=== PATIENT | female | born 1945 | race Caucasian/White ===

== ENCOUNTER 2023-07-31 14:35 | Emergency (ER) | payer MEDICARE, SELFPAY ==
--- NOTE | ~2023-07-31 | CT_ITS ---
EXAMINATION: CT abdomen pelvis w con DATE: 07/31/2023 16:37 INDICATION: Left lower quadrant abdominal pain and diarrhea. TECHNIQUE: Computed tomography (CT) of the abdomen and pelvis was performed with 100 mL Omnipaque-350 intravenous contrast. Automated exposure control and iterative reconstruction technique were employe d. The dose-length product was 1331.57 mGy-cm. COMPARISON: None FINDINGS: Lung bases are clear. Heart size is normal. No pericardial or pleural effusion. Focal hepatic steatos is at the ligamentum teres. Cholecystectomy clips at the gallbladder fossa. Spleen, pancreas, bilater al adrenal glands and kidneys are normal. There is prominent descending and sigmoid colon predominant diverticulosis without adjacent inflammatory change to suggest diverticulitis. The appendix is not v isualized. No pericecal inflammatory change to suggest acute appendicitis. No abnormal bowel wall thi ckening or obstruction. Bladder is normal. The uterus is not identified and has likely been surgicall y resected. No free intraperitoneal gas or fluid. No pathologically enlarged abdominal or pelvic lymp hadenopathy. Lumbar levoscoliosis with mild to moderate lumbar and moderate lower thoracic spondylosi s.. IMPRESSION: 1. Diverticulosis. No evident acute intra-abdominal/pelvic process. Reviewed, dictated and finalized at location A.
[2023-07-31 14:50] VITALS: BP 152/70; PULSE 67; RESP 18; TEMP 36.5; O2SAT 98
--- NOTE | 2023-07-31 15:41 | ED.GENADULT ---
HPI - General Adult General Chief complaint: Nausea/Vomiting/Diarrhea <STEPHANIE Sy Last Filed: 07/31/23 16:01> Stated complaint: diarrhea <STEPHANIE Sy Last Filed: 07/31/23 16:01> Time Seen by Provider: 07/31/23 17:13 <STEPHANIE Sy Last Filed: 07/31/23 16:01> Source: patient <STEPHANIE Sy Last Filed: 07/31/23 16:01> Mode of arrival: ambulatory <STEPHANIE Sy Filed: 07/31/23 16:01> Limitations: no limitations <STEPHANIE Sy Filed: 07/31/23 16:01> History of Present Illness HPI narrative: Patient is a 77 y/o female, with pmh diverticulitis/diverticulosis, DM, who presents to the ED with c/o diarrhea. Patient reports having watery diarrhea for the past 1 week. She reports several episodes a day. She complains of lower abdominal cramping just before she is about to have a bowel movement, though otherwise denies significant abdominal pain. She called her primary care doctor today and was referred here. Denies rectal bleeding, melena, nausea, vomiting, fevers, foreign travel, recent abx. Patient is currently on Ozempic for her diabetes. She states she ran out of her prescription dose and was given samples from the pharmacy a couple weeks ago prior to when the diarrhea began. <STEPHANIE Sy Last Filed: 07/31/23 16:01> Related Data Home medications: Home Medications Medication Instructions Recorded Confirmed albuterol sulfate 90 mcg/actuation 1 puff inhalation Q6H PRN 06/26/22 06/25/23 aerosol inhaler aspirin 81 mg tablet,delayed 81 mg PO DAILY 06/26/22 06/25/23 release flash glucose sensor (FreeStyle 06/26/22 06/25/23 Isamar 2 Sensor kit) propranolol 80 mg capsule,24 80 mg PO DAILY 06/26/22 06/25/23 hr,extended release cholecalciferol (vitamin D3) 50 50 mcg PO DAILY 10/23/22 06/25/23 mcg (2,000 unit) capsule estradiol 0.5 mg tablet 0.5 mg PO DAILY 02/27/23 06/25/23 glucagon 3 mg/actuation nasal spray 3 mg intranasal ONCE PRN 02/27/23 06/25/23 prenat.vits,lacie,uyr-pvgt-wepwp 1 tablet PO DAILY 02/27/23 06/25/23 lisinopril 20 mg tablet 10 mg PO DAILY 05/09/23 06/25/23 <Tosha Paniagua PA-C - Last Filed: 07/31/23 16:01> Allergies/adverse reactions: Allergies Allergy/AdvReac Type Severity Reaction Status Date / Time adhesive Allergy Unknown Unknown Verified 06/25/23 13:57 ibuprofen Allergy Unknown Unknown Verified 06/25/23 13:57 iodine Allergy Unknown Unknown Verified 06/25/23 13:57 ketoprofen Allergy Unknown Unknown Verified 06/25/23 13:57 latex Allergy Unknown Unknown Verified 06/25/23 13:57 peanut Allergy Unknown Unknown Verified 06/25/23 13:57 Penicillins Allergy Unknown Unknown Verified 06/25/23 13:57 lactose AdvReac Mild Diarrhea Verified 06/25/23 13:57 donepezil Hcl Allergy Unknown Unknown Uncoded 06/25/23 13:57 <Tosha Paniagua PA-C - Last Filed: 07/31/23 16:01> Review of Systems Review of Systems: CONSTITUTIONAL: Denies fever, chills, or sweats. GASTROINTESTINAL: See HPI. MUSCULOSKELETAL: Denies back pain, joint pain, or myalgia. <Tosha Paniagua PA-C - Last Filed: 07/31/23 16:01> All systems reviewed & are unremarkable except as noted in HPI and below <Tosha Paniagua PA-C - Last Filed: 07/31/23 16:01> [facility] Past Medical History Medical History: Medical History Allergies Anemia Asthma B12 deficiency BMI 40.0-44.9, adult BMI 45.0-49.9, adult Diabetes mellitus Encounter to establish care GERD (gastroesophageal reflux disease) Headache Hyperlipidemia Hypertension Irregular heart rate Kidney disease Muscle cramps Peripheral neuropathy Rash and nonspecific skin eruption Squamous cell carcinoma in situ Stage 3 chronic kidney disease <Tosha Paniagua PA-C - Last Filed: 07/31/23 16:01> Surgical History Surgical History:
[2023-07-31 16:09] LABS: Basophils Absolute Auto 0.1 K/mm3 (0.0-0.1); Basophils Percent Auto 0.5 % (0.2-1.2); Eosinophils Absolute Auto 0.2 K/mm3 (0-0.3); Eosinophils Percent Auto 2.1 % (0-4.4); Hematocrit 45.6 % (37.0-47.0); Hemoglobin 14.2 g/dL (12.0-15.0); Immature Granulocyte Absolute 0.02 K/mm3 (0.00-0.031); Immature Granulocyte Percent A 0.2 % (0-0.5); Lymphocytes Absolute Auto 1.99 K/mm3 (0.9-3.2); Lymphocytes Percent Auto 21.7 % (18.3-44.2); Mean Corpuscular HGB Conc 31.1 g/dl (32-36); Mean Corpuscular Hemoglobin 30.3 pg (26-34); Mean Corpuscular Volume 97.2 fl (80-100); Monocytes Absolute Auto 0.7 K/mm3 (0.1-0.6); Monocytes Percent Auto 7.4 % (2.6-8.5); Neutrophils Absolute Auto 6.3 K/mm3 (1.3-6.7); Neutrophils Percent Auto 68.1 % (45.5-73.1); Platelet Count Result 265 k/mm3 (150-375); Red Blood Count 4.69 M/mm3 (4.2-5.4); Red Cell Distribution Width 14.6 % (11.5-14.5); White Blood Count 9.2 K/mm3 (4.5-10.0)
[2023-07-31 16:21] LABS: Alanine Aminotransferase 17 U/L (6-35); Albumin Level 4.4 g/dL (3.5-5.1); Alkaline Phosphatase 60 U/L (38-126); Anion Gap 7 mmol/L (8-16); Aspartate Amino Transferase 24 U/L (14-36); Blood Urea Nitrogen 8 mg/dL (7-17); Calcium 9.4 mg/dL (8.4-10.2); Carbon Dioxide 30 mmol/L (22-30); Chloride 98 mmol/L (98-107); Estimated CRCL calculation 55 ml/min; Estimated Glomerular Filt Rate > 60; Glucose 114 mg/dL (65-110); Lipase 92 U/L (23-300); Potassium 4.1 mmol/L (3.4-5.0); Sodium 135 mmol/L (137-145)
[2023-07-31 16:40] LABS: Appearance Urine Clear (Clear); Bacteria Urine None Seen /hpf; Bilirubin Urine Negative (Negative); Color Urine Yellow (Yellow); Glucose Urine UA Negative (Negative); Ketones Urine Negative (Negative); Leukocyte Esterase Ur Negative LEU/UL (Negative); Nitrate Urine Negative (Negative); Non Pathogenic Casts 0-2; Protein Urine Negative (Negative); RBC Urine 0-2 /hpf (0-2); Specific Grav Ur 1.007 (1.001-1.035); Squamous Epithelial Cell Urine None seen /hpf (Few); Urobilinogen Urine 0.2 mg/dL (<2.0); WBC Urine 0-5 /hpf; pH Urine 6.5 (5.0-9.0)
[2023-07-31 16:41] LABS: Add Urine Microscopic? YES
[2023-07-31 18:38] VITALS: BP 141/78; PULSE 58; RESP 15; O2SAT 100
== END 2023-07-31 18:39 | disposition home or self-care (01) ==
PROVIDERS: Emergency Medicine; Emergency Provider Physician Assistant; PCP Family Medicine
DX: R10.9 Unspecified abdominal pain (principal); E78.5 Hyperlipidemia, unspecified; I12.9 Hypertensive chronic kidney disease with stage 1 through stage 4 chronic kidney disease, or unspecified chronic kidney disease; N18.30 Chronic kidney disease, stage 3 unspecified
CPT/HCPCS: 36415; 74177; 80053; 81001; 83690; 85025; 99284; Q9967

== ENCOUNTER 2023-08-07 16:15 | Outpatient (CLI) | payer MEDICARE, OTHER, SELFPAY ==
[2023-08-07 18:02] LABS: CRP 0.7 mg/dL (<1.0)
== END 2023-08-07 16:16 | disposition home or self-care (01) ==
PROVIDERS: PCP Family Medicine; Visit Provider Internal Medicine Gastroenterology
DX: R19.7 Diarrhea, unspecified (principal)
CPT/HCPCS: 36415; 86140

== ENCOUNTER 2023-08-09 14:52 | Outpatient (NON) | payer MEDICARE, OTHER, SELFPAY ==
[2023-08-15 17:53] LABS: Calprotectin, Stool 58 mcg/g
== END 2023-08-09 14:53 | disposition home or self-care (01) ==
LOC: ANHLAB 14:53
PROVIDERS: PCP Family Medicine; Visit Provider Internal Medicine Gastroenterology
DX: R19.7 Diarrhea, unspecified (principal)
CPT/HCPCS: 83993; 89055

== ENCOUNTER 2024-03-05 11:02 | Emergency (ER) | payer MEDICARE, SELFPAY ==
--- NOTE | ~2024-03-05 | XR_ITS ---
XR elbow RT min 3V 03/05/2024 11:34 INDICATION: Right elbow pain PROCEDURE: 4 views right elbow COMPARISON: No prior studies for comparison. FINDINGS: Fracture, dislocation or subluxation is not identified. No significant joint effusion. The soft tissues appear within normal limits. No foreign bodies are identified. IMPRESSION: 1: NO ACUTE BONE OR JOINT ABNORMALITY IDENTIFIED. Reviewed, dictated and finalized at location B.
--- NOTE | 2024-03-05 11:10 | ED.UPPEXIN ---
HPI - Extremity Injury (Upper) General Chief Complaint: Extremity Injury, Upper Stated Complaint: rt upper extremity injury Time Seen by Provider: 03/05/24 11:10 Source: patient Mode of arrival: ambulatory Limitations: no limitations History of Present Illness HPI narrative: Patient is a 78-year-old female that presents with right elbow pain after falling February 24 from tripping on the carpet and landing directly on her elbow. Patient has not been seen for injury. Patient states pain has been constant. Denies any numbness, tingling or weakness to distal portion of arm. Related Data Home Medications Medication Instructions Recorded Confirmed albuterol sulfate 90 mcg/actuation 1 puff inhalation Q6H PRN asthma 06/26/22 03/05/24 aerosol inhaler aspirin 81 mg tablet,delayed 81 mg PO DAILY 06/26/22 03/05/24 release flash glucose sensor (FreeStyle 06/26/22 03/05/24 Isamar 2 Sensor kit) propranolol 80 mg capsule,24 80 mg PO DAILY 06/26/22 03/05/24 hr,extended release cholecalciferol (vitamin D3) 50 50 mcg PO DAILY 10/23/22 03/05/24 mcg (2,000 unit) capsule prenat.vits,lacie,oyi-nnhy-eijce 1 tablet PO DAILY 02/27/23 03/05/24 lisinopril 20 mg tablet 10 mg PO DAILY 05/09/23 03/05/24 conjugated estrogens 0.625 mg 0.625 mg PO DAILY 11/06/23 03/05/24 tablet (Premarin) Allergies Allergy/AdvReac Type Severity Reaction Status Date / Time peanut Allergy Severe Anaphylaxis Verified 03/05/24 11:30 Penicillins Allergy Severe Anaphylaxis Verified 03/05/24 11:30 ibuprofen AdvReac Intermediate Gastrointestinal Verified 03/05/24 11:31 Upset iodine AdvReac Intermediate Gastrointestinal Verified 03/05/24 11:31 Upset ketoprofen AdvReac Intermediate Gastrointestinal Verified 03/05/24 11:31 Upset lactose AdvReac Intermediate Gastrointestinal Verified 03/05/24 11:53 Upset adhesive AdvReac Mild Hives Verified 03/05/24 11:30 latex AdvReac Mild Hives Verified 03/05/24 11:30 donepezil Hcl AdvReac Mild Hives Uncoded 03/05/24 11:30 Review of Systems Review of Systems: All systems reviewed & are unremarkable except as noted in HPI and below Constitutional: Constitutional: Denies body ache(s), Denies chills, Denies fatigue, Denies fever(s), Denies headache(s), Denies malaise and Denies weakness Eyes: Eyes: Denies blurry vision, Denies irritation and Denies loss of vision ENT: Denies otalgia, Denies headache(s), Denies nasal discharge, Denies sinus pain and Denies sore throat Cardiovascular: Cardiovascular: Denies chest pain, Denies irregular heart rhythm and Denies dyspnea Respiratory: Respiratory: Denies dyspnea Gastrointestinal: Gastrointestinal: Denies abdominal pain, Denies melena, Denies hematochezia, Denies diarrhea, Denies nausea and Denies vomiting Musculoskeletal: Musculoskeletal: Denies back pain, Denies myalgias and Reports arthralgias Integumentary/Breasts: Skin/Breast: Denies pruritus and Denies rash Neurologic: Denies headache(s), Denies loss of vision and Denies weakness Psychiatric: Psychiatric: Reports no additional psychiatric complaints Endocrine: Endocrine: Denies fatigue PMFSH Past Medical History Medical History Allergies Anemia Asthma B12 deficiency BMI 40.0-44.9, adult BMI 45.0-49.9, adult Diabetes mellitus Encounter to establish care GERD (gastroesophageal reflux disease) Headache Hyperlipidemia Hypertension Irregular heart rate Kidney disease Muscle cramps Peripheral neuropathy Rash and nonspecific skin eruption Squamous cell carcinoma in situ Stage 3 chronic kidney disease Surgical History Surgical History H/O: hysterectomy History of bladder suspension procedure History of cataract surgery History of surgery on arm 02/21/23, mass in right arm, benign Hx of appendectomy Hx of cholecystectomy Family History Family History (Reviewed 03/05/24 @ 11:44 by Carlos
[2024-03-05 11:24] VITALS: BP 140/66; PULSE 62; RESP 16; TEMP 36.3; O2SAT 100
== END 2024-03-05 11:54 | disposition home or self-care (01) ==
PROVIDERS: Emergency Provider Nurse Practitioner Family; PCP Nurse Practitioner Family
DX: M25.521 Pain in right elbow (principal); W22.8XXA Striking against or struck by other objects, initial encounter; K21.9 Gastro-esophageal reflux disease without esophagitis; I12.9 Hypertensive chronic kidney disease with stage 1 through stage 4 chronic kidney disease, or unspecified chronic kidney disease; E11.22 Type 2 diabetes mellitus with diabetic chronic kidney disease; N18.30 Chronic kidney disease, stage 3 unspecified; Z86.008 Personal history of in-situ neoplasm of other site; E11.42 Type 2 diabetes mellitus with diabetic polyneuropathy; E78.5 Hyperlipidemia, unspecified; Z79.82 Long term (current) use of aspirin
CPT/HCPCS: 73080; 99213; G0463

== ENCOUNTER 2024-06-05 13:18 | Outpatient (CLI) | payer MEDICARE, SELFPAY ==
--- NOTE | 2024-06-05 13:32 | ECG_ITS ---
Test Date: 2024-06-05 13:53:54 Measurements Intervals [place] Rate: 70 P: 9 TN: 176 QRS: -30 QRSD: 103 T: -3 QT: 390 QTc: 423 Interpretive Statements SINUS RHYTHM LOW QRS VOLTAGE IN PRECORDIAL LEADS POOR R WAVE PROGRESSION BORDERLINE T WAVE ABNORMALITY- ANT/INF LEADS BASELINE ARTIFACT- I, II, III, AVR, AVL, AVF, V3 BORDERLINE ECG No previous ECG available for comparison Electronically Signed On 06-05-2024 14:10:38 CDT by Bairon Roberts D.O.
[2024-06-05 14:25] LABS: Prothrombin Time 13.2 Seconds (11.1-14.7)
[2024-06-05 14:26] LABS: Partial Thromboplastin Time 29.9 Seconds (22.3-36.8)
[2024-06-05 14:31] LABS: Anion Gap 9 mmol/L (4-12); Blood Urea Nitrogen 12 mg/dL (7-17); Calcium 8.9 mg/dL (8.4-10.2); Carbon Dioxide 28 mmol/L (22-30); Chloride 100 mmol/L (98-107); Estimated Glomerular Filt Rate 48; Glucose 96 mg/dL (65-110); Potassium 4.5 mmol/L (3.4-5.0); Sodium 137 mmol/L (137-145)
== END 2024-06-05 13:19 | disposition home or self-care (01) ==
PROVIDERS: Anesthesiology; PCP Nurse Practitioner Family; Visit Provider Dentist
DX: Z01.818 Encounter for other preprocedural examination (principal); I12.9 Hypertensive chronic kidney disease with stage 1 through stage 4 chronic kidney disease, or unspecified chronic kidney disease; N18.2 Chronic kidney disease, stage 2 (mild)
CPT/HCPCS: 36415; 80048; 85610; 85730; 93005

== ENCOUNTER 2024-06-11 01:24 | Day surgery (SDC) | payer OTHER, SELFPAY ==
--- NOTE | 2024-06-04 14:36 | PC.NURSE ---
Report to the Outpatient Waiting Room, entrance under the green pavilion located off [facility], at time _0730__ on date 06/11/24_. Planned Procedure Time: _09 __.? Time changes happen often and if your time is changed the preop area will call you the afternoon before. - You and your visitor will be asked to self-screen and do not enter if you have any COVID symptoms. Please call surgeon if you need to reschedule. - A mask is optional within the hospital at this time. Patients may have clear liquids (water, carbonated beverages, clear teas, apple juice) until 3 hours prior to surgery with a maximum of 20 ounces. - No food from midnight until time of surgery and no smoking - Infants may have breast milk until 4 hours before surgery, formula 6 hours prior to surgery. - Children will be allowed to drink immediately following surgery.? If applicable, please bring a bottle or sippy cup to assist with drinking. Juice, water, soda, and popsicles are readily available.? For infants on formula, please bring formula the day of surgery.? Pacifiers are allowed. Take only the following medications with a SIP of water on the morning of surgery: DULOXITINE, INHALER IF NEEDED DO NOT STOP ANY OF YOUR OTHER PRESCRIPTION MEDICATIONS PRIOR TO SURGERY EXCEPT THE FOLLOWING Medications to discontinue per physician ____VITAMINS/SUPPLIMENTS Date to take last dose 06/08/24 OK TO CONTINUE ASPIRIN UP UNTIL SURGERY DAY Please no make-up, nail israeli, hairspray, perfume, deodorant, or body powder the day of surgery.? No jewelry (including any body piercings) or valuables the day of surgery, leave them at home.? Please take a shower or bath the night before, or the morning of, surgery with an antibacterial soap.? Wear comfortable, loose fitting clothing.? Children are encouraged to wear pajamas. - Jewelry must be removed prior to entering the operating room.? Rings and piercings that are not removed may be cut off. - The hospital will not accept responsibility for valuables.? - Please leave all valuables, including medications, at home the day of surgery. If you are going home after surgery, a licensed van driver helper must drive you home.? - NO public transportation without another adult if you receive anesthesia. - We recommend that an adult stay with you for 24 hours following discharge. - We also recommend that you do not drive, make important decision, drink alcoholic beverages, or take any drugs that were not prescribed by your health care provider for at least 24 hours after your discharge time. For Pediatric surgeries, we recommend two adults accompany the child home. Follow any additional instructions given to you from your surgeon. Telephone instructions given to _PATIENT/S.O._and asked if any additional questions and then verbalized understanding. Patient advised to call surgeon office or pre surgery nurse liaison [phone] if any additional questions.
[2024-06-11] VITALS (9 sets, daily range): BP systolic 144–181; BP diastolic 62–75; PULSE 64–73; RESP 13–18; TEMP 36.4–36.6; O2SAT 96–100; BMI 42.0
[2024-06-11] MEDS: LACTATED RINGERS 1,000 ML 30 ML IV CONT ×2 (08:15→11:03)
[2024-06-11 08:18] LABS: Glucose Point of Care 111 mg/dl (65-105)
--- NOTE | 2024-06-11 08:30 | WPDHPUPDATE1 ---
History and Physical Update Update Date/Time: 06/11/24 08:30 History and Physical has been reviewed, including an updated exam of the patient. There are NO changes in the patient's condition. Risks, benefits, and alternatives have been discussed and questions answered. Patient agrees to proceed with procedure.
--- NOTE | 2024-06-11 08:31 | PM.IMHP ---
H&P: HPI History of Present Illness Date/Time: 06/11/24 08:31 Chief Complaint: bad teeth PMFSH Past Medical History Medical History (Updated 06/11/24 @ 08:32 by Blaine Alarcon DMD) Allergies Anemia Asthma B12 deficiency BMI 40.0-44.9, adult BMI 45.0-49.9, adult Diabetes mellitus Encounter to establish care Gait disturbance GERD (gastroesophageal reflux disease) Headache Hyperlipidemia Hypertension Irregular heart rate Kidney disease Mitral valve regurgitation Muscle cramps Otitis media, left Peripheral neuropathy Rash and nonspecific skin eruption Squamous cell carcinoma in situ Stage 3 chronic kidney disease Surgical History Surgical History H/O: hysterectomy History of bladder suspension procedure History of cataract surgery History of surgery on arm 02/21/23, mass in right arm, benign Hx of appendectomy Hx of cholecystectomy Family History Family History Father Lymph node cancer Mother Hypertension Heart disease Sibling Colon cancer Other Colon cancer Grandparent Diabetes mellitus Heart disease Social History Social History Smoking status: Never smoker Alcohol intake: never Substance use: never Do You Feel Safe in your Home?: Yes Lack of Transportation: No Lack of Food: Never True Current Housing: I Have Housing Concerned About Future Housing: No Difficulty Paying Gas/Electric Bills: No Difficulty Paying for Meds: No Currently Unemployed: No Education: Associate Degree Difficulty w/ Childcare or Family Care: No Living arrangements: with family Gender identity (if verbalized by the patient): Female Meds Home Medications and Allergies Home Medications Medication Instructions Recorded Confirmed Type albuterol sulfate 90 mcg/actuation 1 puff inhalation Q6H PRN asthma 06/26/22 06/11/24 History aerosol inhaler aspirin 81 mg tablet,delayed 81 mg PO DAILY 06/26/22 06/11/24 History release flash glucose scanning reader #1 ea 06/26/22 06/11/24 Rx (FreeStyle Isamar 2 [place]) flash glucose sensor (FreeStyle 06/26/22 06/11/24 History Isamar 2 Sensor kit) propranolol 80 mg capsule,24 80 mg PO DAILY 06/26/22 06/11/24 History hr,extended release cholecalciferol (vitamin D3) 50 50 mcg PO DAILY 10/23/22 06/11/24 History mcg (2,000 unit) capsule cyanocobalamin (vitamin B-12) 1,000 mcg IM .twice a month #6 mL 01/10/23 06/11/24 Rx 1,000 mcg/mL injection solution prenat.vits,lacie,fiv-snjs-dbnwo 1 tablet PO DAILY 02/27/23 06/11/24 History fluticasone propionate 50 1 spray intranasal BID #16 grams 05/09/23 06/11/24 Rx mcg/actuation nasal spray,suspension gabapentin 300 mg capsule 300 mg PO QHS #90 caps 09/12/23 06/11/24 Rx lovastatin 20 mg tablet 20 mg PO DAILY #90 tabs 10/02/23 06/11/24 Rx folic acid 1 mg tablet 1 mg PO .qod #45 tabs 10/09/23 06/11/24 Rx duloxetine 30 mg capsule,delayed 30 mg PO DAILY #90 caps 10/30/23 06/11/24 Rx release conjugated estrogens 0.625 mg 0.625 mg PO DAILY 11/06/23 06/11/24 History tablet (Premarin) tizanidine 4 mg tablet 4 mg PO QHS PRN muscle spasticity 12/24/23 06/11/24 Rx #90 tabs famotidine 20 mg tablet (Acid 20 mg PO DAILY #90 tabs 01/02/24 06/11/24 Rx Boot [employer] Saddle Repair Person (famotidine)) semaglutide 2 mg/dose (8 mg/3 mL) 2 mg (0.75 mL) subcut WEEKLY 90 01/02/24 06/11/24 Rx subcutaneous pen injector days #9 mL dicyclomine 10 mg capsule 10 mg PO TID #90 caps 04/28/24 06/11/24 Rx loperamide 2 mg capsule 2 mg PO Q6H PRN loose stool #60 04/28/24 06/11/24 Rx (Anti-Diarrheal (loperamide)) caps empagliflozin 10 mg tablet 10 mg PO DAILY #90 tabs 05/07/24 06/11/24 Rx (Jardiance) ropinirole 1 mg tablet 1 mg PO QHS #90 tabs 05/12/24 06/11/24 Rx doxycycline hyclate 100 mg tablet 100 mg PO BID #14 tabs 06/04/24 06/11/24 Rx lisinopril 20 mg tabl
--- NOTE | 2024-06-11 09:22 | WPDANESEPPF ---
Anes - Initial Pre Proc Eval Procedure: Operation Date: 06/11/24 09:30 Proposed Procedures p Extraction of Nine Teeth - Blaine Alarcon DMD Date/Time: 06/11/24 09:22 Surgeon: Blaine Alarcon DMD Pre Op Diagnosis: Dental Caries - Patient Data Age: 78 Gender: F Height: 1.6 m Weight: 107.7 kg Last Vital Signs Temp 36.4 C 06/11/24 07:55 Pulse 64 06/11/24 07:55 Resp 18 06/11/24 07:55 BP 181/72 H 06/11/24 07:55 Pulse Ox 100 06/11/24 07:55 O2 Del Method Room Air 06/11/24 07:55 Allergies Allergy/AdvReac Type Severity Reaction Status Date / Time peanut Allergy Severe Anaphylaxis Verified 06/11/24 07:56 Penicillins Allergy Severe Anaphylaxis Verified 06/11/24 07:56 ibuprofen AdvReac Intermediate Gastrointestinal Verified 06/11/24 07:56 Upset iodine AdvReac Intermediate Gastrointestinal Verified 06/11/24 07:56 Upset ketoprofen AdvReac Intermediate Gastrointestinal Verified 06/11/24 07:56 Upset adhesive AdvReac Mild Hives Verified 06/11/24 07:56 latex AdvReac Mild Hives Verified 06/11/24 07:56 donepezil Hcl AdvReac Mild Hives Uncoded 06/11/24 07:56 Home Medications Medication Instructions Recorded Confirmed Type albuterol sulfate 90 mcg/actuation 1 puff inhalation Q6H PRN asthma 06/26/22 06/11/24 History aerosol inhaler aspirin 81 mg tablet,delayed 81 mg PO DAILY 06/26/22 06/11/24 History release flash glucose scanning reader #1 ea 06/26/22 06/11/24 Rx (FreeStyle Isamar 2 [place]) flash glucose sensor (FreeStyle 06/26/22 06/11/24 History Isamar 2 Sensor kit) propranolol 80 mg capsule,24 80 mg PO DAILY 06/26/22 06/11/24 History hr,extended release cholecalciferol (vitamin D3) 50 50 mcg PO DAILY 10/23/22 06/11/24 History mcg (2,000 unit) capsule cyanocobalamin (vitamin B-12) 1,000 mcg IM .twice a month #6 mL 01/10/23 06/11/24 Rx 1,000 mcg/mL injection solution prenat.vits,lacie,vmg-niou-gagbm 1 tablet PO DAILY 02/27/23 06/11/24 History fluticasone propionate 50 1 spray intranasal BID #16 grams 05/09/23 06/11/24 Rx mcg/actuation nasal spray,suspension gabapentin 300 mg capsule 300 mg PO QHS #90 caps 09/12/23 06/11/24 Rx lovastatin 20 mg tablet 20 mg PO DAILY #90 tabs 10/02/23 06/11/24 Rx folic acid 1 mg tablet 1 mg PO .qod #45 tabs 10/09/23 06/11/24 Rx duloxetine 30 mg capsule,delayed 30 mg PO DAILY #90 caps 10/30/23 06/11/24 Rx release conjugated estrogens 0.625 mg 0.625 mg PO DAILY 11/06/23 06/11/24 History tablet (Premarin) tizanidine 4 mg tablet 4 mg PO QHS PRN muscle spasticity 12/24/23 06/11/24 Rx #90 tabs famotidine 20 mg tablet (Acid 20 mg PO DAILY #90 tabs 01/02/24 06/11/24 Rx Information Technology Auditor (famotidine)) semaglutide 2 mg/dose (8 mg/3 mL) 2 mg (0.75 mL) subcut WEEKLY 90 01/02/24 06/11/24 Rx subcutaneous pen injector days #9 mL dicyclomine 10 mg capsule 10 mg PO TID #90 caps 04/28/24 06/11/24 Rx loperamide 2 mg capsule 2 mg PO Q6H PRN loose stool #60 04/28/24 06/11/24 Rx (Anti-Diarrheal (loperamide)) caps empagliflozin 10 mg tablet 10 mg PO DAILY #90 tabs 05/07/24 06/11/24 Rx (Jardiance) ropinirole 1 mg tablet 1 mg PO QHS #90 tabs 05/12/24 06/11/24 Rx doxycycline hyclate 100 mg tablet 100 mg PO BID #14 tabs 06/04/24 06/11/24 Rx lisinopril 20 mg tablet 20 mg PO DAILY #90 tabs 06/04/24 06/11/24 Rx Laboratory Tests 06/11/24 08:14 POC Capillary Glucose 111 H mg/dl (65-105) Patient hx anesthesia problems: none Family hx anesthesia problems: none Results Review: All pre-operative results and documents have been reviewed as part of the pre-operative evaluation. [facility] Past Medical History Medical History Allergies Anemia Asthma B12 deficiency BMI 40.0-44.9, adult BMI 45.0-49.9, adult Diabetes mellitus Encounter to establish care Gait disturbance GERD (gastroesophageal reflux disease) Headache Hyperlipidemia Hypertension Irregular heart r
[2024-06-11] MEDS: OXYMETAZOLINE HCL 0.05% NAS 15 ML BTL (*BKC) 1 SPRAY NASAL (10:35)
[2024-06-11] MEDS: LIDOCAINE 2%-EPI (FOR DENTAL BLOCK) 1.7 ML CARTRIDGE 6.8 ML INFILTRATE (10:38)
--- NOTE | 2024-06-11 11:00 | P.OP_ITS ---
Procedure Note - Detailed Date of Procedure 06/11/24 Pre-op Diagnosis Dental Caries 21-29 Post-op Diagnosis Same Procedure Performed removal of 21-29 Surgeon Blaine Alarcon, [facility] Anesthesia General Description of Procedure Patient encounter in the operating room in the care of the anesthesia service who induced a general anesthetic. Patient was draped in the usual manner for an intraoral surgical procedure. Oral cavity was suctioned free of debris and the throat pack placed. Local anesthetic administered. Sulcular incision made and a full-thickness flap was elevated to the buccal. Teeth numbers 21-29 were then removed using forceps technique without complication. Alveolar plasty was completed the wound was thoroughly irrigated and then closed using 4 0 chromic gut suture in continuous fashion. Oral cavity was suctioned free of debris and the throat pack was removed. Gauze packs place. Care of the patient returned to the anesthesia service
[2024-06-11 11:14] LABS: Glucose Point of Care 93 mg/dl (65-105)
== END 2024-06-11 12:47 | disposition home or self-care (01) ==
PROVIDERS: PCP Nurse Practitioner Family; Visit Provider Dentist
PROC: (CPT 41899; principal; 2024-06-11 09:30)
DX: K08.89 Other specified disorders of teeth and supporting structures (principal); K02.9 Dental caries, unspecified; I12.9 Hypertensive chronic kidney disease with stage 1 through stage 4 chronic kidney disease, or unspecified chronic kidney disease; N18.30 Chronic kidney disease, stage 3 unspecified; E11.9 Type 2 diabetes mellitus without complications; K21.9 Gastro-esophageal reflux disease without esophagitis; E78.5 Hyperlipidemia, unspecified; D64.9 Anemia, unspecified; J45.909 Unspecified asthma, uncomplicated; E53.8 Deficiency of other specified B group vitamins; E66.9 Obesity, unspecified; Z68.41 Body mass index [BMI] 40.0-44.9, adult; Z79.51 Long term (current) use of inhaled steroids; Z79.82 Long term (current) use of aspirin; Z79.85 Long-term (current) use of injectable non-insulin antidiabetic drugs; Z79.84 Long term (current) use of oral hypoglycemic drugs; Z98.890 Other specified postprocedural states; Z90.49 Acquired absence of other specified parts of digestive tract; Z85.828 Personal history of other malignant neoplasm of skin; Z80.0 Family history of malignant neoplasm of digestive organs; Z80.7 Family history of other malignant neoplasms of lymphoid, hematopoietic and related tissues; Z82.49 Family history of ischemic heart disease and other diseases of the circulatory system
CPT/HCPCS: 41899 ×9; 82948; A9270; J0330; J1100; J2405; J2704; J3010; J7120